=== PATIENT | female | born 1955 | race Caucasian/White ===

== ENCOUNTER → 2017-11-09 | Day surgery (SDC) | payer OTHER ==
[~2017-11-09] MED LIST: SODIUM TETRADECYL SULFATE 3% 2 ML VIAL IV ONE
== END | disposition home or self-care (01) ==
LOC: FIMAGING 13:34
PROVIDERS: ATTEND Radiology Diagnostic Radiology
PROC: 3E033TZ Introduction of Destructive Agent into Peripheral Vein, Percutaneous Approach (ICD-10-PCS; principal; 2017-11-09)
DX: I83.811 Varicose veins of right lower extremity with pain (principal)